=== PATIENT | male | born 1985 | race Two or more races ===

== ENCOUNTER 2016-10-12 05:17 | Emergency (ER) | payer OTHER ==
[2016-10-12] MEDS ORDERED: Diphtheria,Pertussis(Acell),Tetanus Vaccine 0.5 ML Syringe IM ONE (05:30)
[2016-10-12] MEDS ORDERED: Ketorolac 60 MG/2 ML SDV IM ONE (05:38)
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
[2016-10-12] MEDS ORDERED: Lidocaine 1% with EPINEPHrine 1:100,000 20 ML MDV INJECT ONE (05:43)
[2016-10-12] MEDS ORDERED: Bacitracin Oint 1 GM U/D Packet TOP ONE (05:43)
[2016-10-12 07:03] VITALS: BP 137/98
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
== END 2016-10-12 07:02 | disposition home or self-care (01) ==
LOC: MW.ED 05:17
DX: S01.81XA Laceration without foreign body of other part of head, initial encounter (principal); S81.012A Laceration without foreign body, left knee, initial encounter; S20.219A Contusion of unspecified front wall of thorax, initial encounter; V83.6XXA Passenger of special industrial vehicle injured in nontraffic accident, initial encounter
CPT/HCPCS: 12001; 12013; 71020; 90471; 90715; 96372; 99284; J1885